=== PATIENT | male | born 1995 | race Asian ===

== ENCOUNTER 2018-09-23 10:49 | Emergency (ER) | payer MEDICAID, OTHER ==
[~2018-09-23] VITALS: Ht 172.7 cm; Wt 75.0 kg
[2018-09-23 10:54] VITALS: BP 122/72
== END 2018-09-23 13:41 | disposition home or self-care (01) ==
LOC: ED 13:34
DX: M10.072 Idiopathic gout, left ankle and foot (principal)
CPT/HCPCS: 36415; 73610; 84550; 96372; 99284; J1885